=== PATIENT | female | born 1945 | race Caucasian/White ===

== ENCOUNTER 2018-01-06 06:58 | Day surgery (SDC) | payer OTHER, MEDICARE ==
[2018-01-06 07:22] VITALS: BMI 32.3
[2018-01-06] MEDS ORDERED: LIDOCAINE HCL/PF 2% SDV 5ML VIAL ONE (07:50)
[2018-01-06] MEDS ORDERED: PROPOFOL 20 ML ONE ×3 (07:50)
[2018-01-06 08:19] VITALS: TEMP 97.8
[2018-01-06 09:00] VITALS: BP 120/50; PULSE 65
== END 2018-01-06 09:15 | disposition home or self-care (01) ==
LOC: JASU-ENDO 06:58
PROVIDERS: ATTEND Internal Medicine Gastroenterology
PROC: 0DJD8ZZ Inspection of Lower Intestinal Tract, Via Natural or Artificial Opening Endoscopic (ICD-10-PCS; principal; 2018-01-06 08:00)
DX: K59.00 Constipation, unspecified (principal); Z98.0 Intestinal bypass and anastomosis status; K57.30 Diverticulosis of large intestine without perforation or abscess without bleeding

== ENCOUNTER 2018-09-23 21:03 | Emergency (ER) | payer OTHER, MEDICARE ==
[2018-09-23 21:12] VITALS: BP 138/66; PULSE 80; TEMP 98.2; BMI 32.3
--- NOTE | 2018-09-23 23:21 | PDOC ---
Attending Attestation - HPI HPI: 09/23/18 23:42 Patient is a 73 year old female with a significant past medical history of recurrent LLQ pain c/w diverticulitis, Pancreatitis, who presents to the ED with complaints of nausea and vomiting that began earlier this week. Patient reports experiencing nausea with associated multiple episodes of vomiting, prompting her to come into the ED for further evaluation. She reports experiencing 1 bowel movement this morning, stating it was normal. Patient reports experiencing slight abdominal pain that she states feels like bad GERD or like pancreatitis. Denies chest pain, Sob. Denies fevers, chills. Denies dysuria, hematuria. Denies constipation, diarrhea. Denies contact with sick individuals, out of state travelling. Denies any other symptoms. Allergies: Sulfa Social history: No smoking. No alcohol. No illicit drugs. Surgical history: Cholecystectomy PMD: Dr. Meek - Physicial Exam PE: 09/23/18 23:42 Agree with residents Physical Exam. <Mayito Blake - Last Filed: 09/23/18 23:42> - Resident Resident Name: Perez Lucas - ED Attending Attestation I have performed the following: I have examined & evaluated the patient, The case was reviewed & discussed with the resident, I agree w/resident's findings & plan - Medical Decision Making 09/24/18 03:17 73-year-old female with epigastric pain CT scan of the abdomen and pelvis shows no acute abdominal pathology There is an incidental finding of subacute rib fractures which do not appear to be related to patient's complaint today Patient improved after antacids, antiemetics and analgesics Plan for discharge with outpatient gastroenterology follow-up <Nova Ordonez - Last Filed: 09/24/18 03:18>
[2018-09-23] MEDS ORDERED: ACETAMINOPHEN 1000 MG/100 ML VIAL (NON FORMULARY) IVPB ONE (23:24)
[2018-09-23] MEDS ORDERED: FAMOTIDINE 20 MG/50 ML IVPB 20 MG/50 ML MG IVPB ONE ×2 (23:24→23:51)
[2018-09-23] MEDS ORDERED: SODIUM CHLORIDE 1,000 ML IV STA (23:24)
[2018-09-23] MEDS ORDERED: ONDANSETRON 4 MG/2 ML VIAL IVPUSH ONE (23:24)
--- NOTE | 2018-09-23 23:28 | PDOC ---
History of Present Illness - General Chief Complaint: Pain Stated Complaint: VIMITTING/ABD PAIN Time Seen by Provider: 09/23/18 23:17 History Source: Patient Exam Limitations: No Limitations - History of Present Illness Initial Comments: 09/23/18 23:29 Patient is 73F with history of diverticulitis, cholecystectomy, GERD, pancreatitis, HTN, HLD, and DM here today complaining of epigastric abdominal pain and vomiting that onset this morning. Endorses burning sensation in her epigastric region. Denies chest pain and shortness of breath. Denies dysuria, endorses decreased urine output. Last bowel movement this morning, no diarrhea. No fevers, chills. No blood in vomit. Unable to tolerate PO. Past History - Past Medical History Allergies/Adverse Reactions: Allergies Allergy/AdvReac Type Severity Reaction Status Date / Time Sulfa (Sulfonamide Allergy Rash Verified 09/23/18 21:12 Antibiotics) [Sulfa(Sulfonamide Antibiotics)] Home Medications: Ambulatory Orders Aspirin [ASA -] 81 mg PO DAILY 03/12/12 Atorvastatin Ca [Lipitor] 10 mg PO DAILY 03/12/12 Cyanocobalamin [Vitamin B12 -] 25,000 mcg PO WEEKLY 03/12/12 Quinapril HCl [Accupril -] 20 mg PO DAILY 03/12/12 Cholecalciferol (Vitamin D3) [Vitamin D3] 2,000 unit PO DAILY 08/17/14 Pyridoxine HCl [Vitamin B6] 1 tab PO DAILY 11/04/14 Multivit-Min/FA/Lycopen/Lutein [Centrum Silver Tablet] 1 each PO DAILY 10/13/15 Verapamil HCl ER [Calan Sr -] 240 mg PO DAILY tablet.er 10/15/15 Methimazole [Tapazole -] 1 tab PO ASDIR 01/05/18 Sitagliptin Phos/Metformin HCl [Janumet Xr 50-1,000 mg Tablet] 1 each PO BID 04/16 Anemia: No Asthma: No Cancer: No Cardiac Disorders: No CVA: No COPD: No CHF: No Dementia: No Diabetes: Yes (NIDDM) GI Disorders: Yes (DIVERTICULITIS/IBS) Disorders: No HTN: Yes Hypercholesterolemia: Yes Liver Disease: No Seizures: No Thyroid Disease: Yes - Surgical History Abdominal Surgery: No Appendectomy: No Cardiac Surgery: No Cholecystectomy: Yes Lung Surgery: No Neurologic Surgery: No Orthopedic Surgery: Yes (RIGHT LEG FRACTURE IN 2 PLACES) - Suicide/Smoking/Psychosocial Hx Smoking History: Never smoked Have you smoked in the past 12 months: No Hx Alcohol Use: No Drug/Substance Use Hx: No Substance Use Type: None Hx Substance Use Treatment: No Review of Systems - Review of Systems Able to Perform ROS?: Yes Comments:: 09/23/18 23:34 GENERAL/CONSTITUTIONAL: No fever or chills. No weakness. HEAD, EYES, EARS, NOSE AND THROAT: No change in vision. No sore throat. CARDIOVASCULAR: No chest pain or shortness of breath RESPIRATORY: No cough, wheezing, or hemoptysis. GASTROINTESTINAL: +nausea, +vomiting, no diarrhea or constipation. GENITOURINARY: No dysuria, frequency, or change in urination. MUSCULOSKELETAL: No joint or muscle swelling or pain. No neck or back pain. SKIN: No rash NEUROLOGIC: No headache, vertigo, loss of consciousness, or change in strength/ sensation. ALLERGIC/IMMUNOLOGIC: No hives or skin allergy. *Physical Exam - Vital Signs Last Vital Signs Temp Pulse Resp BP Pulse Ox 98.2 F 80 18 138/66 97 09/23/18 21:10 09/23/18 21:10 09/23/18 21:10 09/23/18 21:10 09/23/18 21:10 - Physical Exam Comments: 09/23/18 23:34 GENERAL: Awake, alert, and fully oriented, in no acute distress HEAD: No signs of trauma, normocephalic, atraumatic EYES: PERRLA, EOMI, sclera anicteric, conjunctiva clear ENT: Auricles normal inspection, hearing grossly normal, nares patent, oropharynx clear without exudates. Moist mucosa NECK: Normal ROM, supple, no lymphadenopathy, JVD, or masses LUNGS: No distress, speaks full sentences, clear to auscultation bilaterally HEART: Regular rate and rhythm, normal S1 and S2, no murmurs, rubs or gallops, peripheral pulses normal and equal bilaterally. ABDOMEN: Soft, +epigastric abdominal pain, increased bowel sounds. No guarding , no rebound. No masses EXTREMITIES: Normal inspection, Normal range of motion, no edema. No clubbing or cyanosis. NEUROLOGICAL: Cranial nerves II through XII grossly intact. Normal speech, no focal sensorimotor deficits SKIN: Warm, Dry, normal turgor, no rashes or lesions noted. ED Treatment Course - LABORATORY CBC & Chemistry Diagram: 09/24/18 00:09 09/24/18 00:09 - RADIOLOGY Radiology Studies Ordered: Category Date Time Status ABDOMEN & PELVIS CT WITH CONTR [CT] Stat CT Scan 09/23/18 23:26 Ordered Medical Decision Making - Medical Decision Making 09/23/18 23:35 Patient is 73F with history of diverticulitis, GERD, pancreatitis, cholecystitis , HTN, HLD, DM here today with abdominal pain and vomiting. Vitals normal and stable. DDx includes, but is not limited to: pancreatitis, sbo, gastritis. Will evaluate with labs, ct a/p. Given tylenol, fluids, zofran pepcid. 09/24/18 04:48 CBC normal. CMP reassuring. Lipase negative. Trop negative. CT a/p pelvis shows no acute abnormalities EKG shows NSR with rate of 80. No st elevations/depressions. Normal axis. Normal intervals. No significant t wave abnormalities. Patient reassessed, nontender abdomen. UA cancelled, no urinary symptoms, other symptoms resolved. Patient has GI in [facility], instructed to follow up. *DC/Admit/Observation/Transfer Diagnosis at time of Disposition: Abdominal pain - Discharge Dispostion Disposition: HOME Condition at time of disposition: Good Decision to Admit order: No - Referrals Referrals: Jeromy Meek MD [Primary Care Provider] - - Patient Instructions Printed Discharge Instructions: DI for Abdominal Pain-Adult Additional Instructions: Please follow up with your GI doctor this week. Please return if you have any new, worsening or concerning symptoms, especially increasing pain, vomiting and shortness of breath. - Post Discharge Activity
[2018-09-23] MEDS ORDERED: ACETAMINOPHEN INJECTION 100 ML IVPB ONE (23:50)
[2018-09-23] MEDS ORDERED: ONDANSETRON 4 MG/2 ML VIAL ONE (23:50)
[2018-09-24 00:34] LABS: BASO % 0.2 % (0-2.0); EOS % 0.8 % (0-4.5); HEMATOCRIT 39.3 % (32.4-45.2); HEMOGLOBIN 13.4 GM/dL (10.7-15.3); LYMPH % 4.8 % (8-40); MCH 29.7 pg (25.7-33.7); MCHC 34.1 g/dl (32.0-36.0); MEAN CELL VOLUME 87.2 fl (80-96); MEAN PLT VOLUME 9.4 fl (7.5-11.1); MONO % 5.3 % (3.8-10.2); NEUT % 88.9 % (42.8-82.8); PLATELET COUNT 181 K/MM3 (134-434); RBC 4.51 M/mm3 (3.60-5.2); RDW 14.3 % (11.6-15.6); WHITE BLOOD COUNT 8.2 K/mm3 (4.0-10.0)
[2018-09-24 00:44] LABS: INR 1.12 (0.83-1.09); PROTHROMBIN TIME (PATIENT) 13.2 SEC (9.7-13.0)
[2018-09-24 01:01] LABS: ALBUMIN 3.4 g/dl (3.4-5.0); ALK PHOS 63 U/L (45-117); ANION GAP 9 MMOL/L (8-16); BILIRUBIN,TOTAL 0.7 mg/dL (0.2-1); BLOOD UREA NITROGEN 21 mg/dL (7-18); CALCIUM 8.7 mg/dL (8.5-10.1); CHLORIDE 100 mmol/L (98-107); CO2 23 mmol/L (21-32); CREATININE 0.7 mg/dL (0.55-1.3); GLUCOSE,RANDOM 263 mg/dL (74-106); LIPASE 113 U/L (73-393); MAGNESIUM 1.6 mg/dL (1.8-2.4); POTASSIUM 3.9 mmol/L (3.5-5.1); SGOT/AST 10 U/L (15-37); SGPT/ALT 23 U/L (13-61); SODIUM 132 mmol/L (136-145); TOT PROT 6.6 g/dl (6.4-8.2)
[2018-09-24] MEDS ORDERED: METOCLOPRAMIDE HCL INJECTION 10 MG/2 ML VIAL IVPUSH ONE (01:02)
--- NOTE | 2018-09-24 11:50 | EKG ---
Test Reason : Blood Pressure : / mmHG Vent. Rate : 080 BPM Atrial Rate : 080 BPM P-R Int : 154 ms QRS Dur : 086 ms QT Int : 380 ms P-R-T Axes : 042 -08 060 degrees QTc Int : 438 ms NORMAL SINUS RHYTHM NORMAL ECG WHEN COMPARED WITH ECG OF 13-OCT-2015 17:05, NO SIGNIFICANT CHANGE WAS FOUND Confirmed by ANDRE PALMER MD ([id number]) on 09/24/2018 11:50:03 AM Referred By: Confirmed By:ANDRE PALMER MD
== END 2018-09-24 05:22 | disposition home or self-care (01) ==
LOC: JER 21:03
PROC: 3E033GC Introduction of Other Therapeutic Substance into Peripheral Vein, Percutaneous Approach (ICD-10-PCS; principal; 2018-09-23)
PROC: 3E033GC Introduction of Other Therapeutic Substance into Peripheral Vein, Percutaneous Approach (ICD-10-PCS; 2018-09-23)
PROC: 3E033NZ Introduction of Analgesics, Hypnotics, Sedatives into Peripheral Vein, Percutaneous Approach (ICD-10-PCS; 2018-09-23)
DX: R10.84 Generalized abdominal pain (principal); I10 Essential (primary) hypertension; E78.5 Hyperlipidemia, unspecified; E11.9 Type 2 diabetes mellitus without complications; Z79.84 Long term (current) use of oral hypoglycemic drugs; Z87.19 Personal history of other diseases of the digestive system
CPT/HCPCS: 36415; 74177-TC; 80053; 82550; 83690; 83735; 84484; 85025; 85610; 93005; 93010; 99281-25; J0131; J7030

== ENCOUNTER 2020-08-15 04:56 | Day surgery (SDC) | payer OTHER, MEDICARE ==
[2020-08-11 11:53] VITALS: BMI 31.5
[2020-08-15 08:32] VITALS: TEMP 98.3
[2020-08-15 09:14] VITALS: BP 143/64; PULSE 71
== END 2020-08-15 09:00 | disposition home or self-care (01) ==
LOC: JASU-ENDO 04:56
PROVIDERS: ATTEND Internal Medicine Gastroenterology
PROC: 0DB78ZX Excision of Stomach, Pylorus, Via Natural or Artificial Opening Endoscopic, Diagnostic (ICD-10-PCS; principal; 2020-08-15 08:45)
DX: K44.9 Diaphragmatic hernia without obstruction or gangrene (principal); K21.9 Gastro-esophageal reflux disease without esophagitis
CPT/HCPCS: 88305-TC; 88342-TC

== ENCOUNTER 2020-11-18 12:31 | Emergency (ER) | payer OTHER, MEDICARE ==
[2020-11-18 12:39] VITALS: TEMP 98.5; BMI 28.1
[2020-11-18] MEDS ORDERED: ACETAMINOPHEN 325 MG TABLET (FP) ONE (14:03)
[2020-11-18 15:27] VITALS: BP 208/78; PULSE 78
== END 2020-11-18 15:34 | disposition home or self-care (01) ==
LOC: JER 12:31
DX: M79.604 Pain in right leg (principal)
CPT/HCPCS: 73560-TC-RT-FY; 73590-TC-RT-FY; 93971-TC; 99284-25

== ENCOUNTER 2022-07-07 13:26 | Observation (INO) | payer OTHER, MEDICARE ==
[2022-07-07 13:39] VITALS: BMI 28.0
[2022-07-07] MEDS ORDERED: SODIUM CHLORIDE 0.9% 500 ML INFUS.BAG IV ONE ×2 (14:34→16:30)
[2022-07-07] MEDS ORDERED: FAMOTIDINE 20 MG/50 ML IVPB 20 MG/50 ML MG IVPB ONE ×2 (14:50→15:02)
[2022-07-07] MEDS ORDERED: MAG HYDROX/AL HYDROX/SIMETH 30 ML UNIT-DOSE CUP PO ONE (14:50)
[2022-07-07] MEDS ORDERED: MAG HYDROX/AL HYDROX/SIMETH 30 ML UNIT-DOSE CUP ONE (15:02)
[2022-07-07 15:31] LABS: BASO % 0.6 % (0-2.0); EOS % 4.5 % (0-4.5); HEMATOCRIT 36.4 % (32.4-45.2); HEMOGLOBIN 12.2 GM/dL (10.7-15.3); LYMPH % 14.7 % (8-40); MCH 29.4 pg (25.7-33.7); MCHC 33.5 g/dl (32.0-36.0); MEAN CELL VOLUME 87.6 fl (80-96); NEUT % 71.2 % (42.8-82.8); PLATELET COUNT 276 10^3/uL (134-434); RBC 4.15 M/mm3 (3.60-5.2); RDW 13.7 % (11.6-15.6); WHITE BLOOD COUNT 9.7 K/mm3 (4.0-10.0)
[2022-07-07 15:32] LABS: VENOUS BASE EXCESS -5.5 mmol/L (-2-2); VENOUS O2 SATURATION 23.6 % (70-80); VENOUS PCO2 36.9 mmHg (38-52); VENOUS PH 7.342 (7.310-7.410)
[2022-07-07 15:43] LABS: INR 0.97 (0.83-1.09); PROTHROMBIN TIME (PATIENT) 11.2 SEC (9.7-13.0)
[2022-07-07 15:46] LABS: ACTIVATED PTT 26.1 SECONDS (25.2-36.5)
[2022-07-07 15:53] LABS: CHLORIDE 102 mmol/L (98-107); SODIUM 131 mmol/L (136-145)
[2022-07-07 15:55] LABS: CALCIUM 9.6 mg/dL (8.5-10.1)
[2022-07-07 15:56] LABS: ALBUMIN 3.9 g/dl (3.4-5.0); BLOOD UREA NITROGEN 52.1 mg/dL (7-18); CO2 19 mmol/L (21-32); GLUCOSE,RANDOM 287 mg/dL (74-106)
[2022-07-07 15:59] LABS: CREATININE 1.9 mg/dL (0.55-1.3); SGOT/AST 11 U/L (15-37); SGPT/ALT 24 U/L (13-61)
[2022-07-07 16:01] LABS: BILIRUBIN,TOTAL 0.5 mg/dL (0.2-1); TOT PROT 6.8 g/dl (6.4-8.2)
[2022-07-07 16:02] LABS: ALK PHOS 87 U/L (45-117)
[2022-07-07 16:04] LABS: ANION GAP 10 MMOL/L (8-16)
[2022-07-07] MEDS ORDERED: CALCIUM GLUCONATE 10% - 1,000 MG/10 ML VIAL IVPUSH ONE (16:08)
[2022-07-07] MEDS ORDERED: INSULIN REGULAR HUMAN 100 UNITS/ML *VIAL IVPUSH ONE (16:08)
[2022-07-07] MEDS ORDERED: ALBUTEROL SO4 0.083% IH SOL 2.5 MG/3 ML VIAL.NEB. NEB ONE ×2 (16:09→16:19)
[2022-07-07] MEDS ORDERED: DEXTROSE 50%-WATER - 25 GM/50 ML VIAL IVPUSH ONE (16:09)
[2022-07-07] MEDS ORDERED: DEXTROSE 50%-WATER 25 GM/50 ML DISP.SYRIN ONE (16:19)
[2022-07-07] MEDS ORDERED: CALCIUM GLUCONATE 10% - 1,000 MG/10 ML VIAL ONE (16:20)
[2022-07-07] MEDS ORDERED: SODIUM BICARBONATE 8.4% 50 MEQ/50 ML VIAL IV ONE (16:32)
[2022-07-07] MEDS ORDERED: SODIUM BICARBONATE 8.4% - 50 ML ONE (16:41)
[2022-07-07] MEDS ORDERED: SODIUM ZIRCONIUM CYCLOSILICATE (LOKELMA) 5 GM PACKET PO SCH (16:45)
[2022-07-07 16:57] LABS: EPI CELLS 6 /uL (0-25.1); HYALINE CASTS 2 /uL (0-3.1); PH,URINE 5.5 (5.0-8.0); URINE APPEARANCE CLOUDY; URINE BACTERIA 73 /uL (0-1359); URINE BILIRUBIN NEGATIVE (NEGATIVE); URINE COLOR YELLOW; URINE GLUCOSE (UA) TRACE (NEGATIVE); URINE KETONE NEGATIVE (NEGATIVE); URINE LEUK ESTERASE 3+ (NEGATIVE); URINE NITRITE NEGATIVE (NEGATIVE); URINE PROTEIN TRACE (NEGATIVE); URINE RBC 11 /uL (0-23.9); URINE UROBILINOGEN 0.2 mg/dL (0.2-1.0); URINE WBC 832 /uL (0-25.8)
[2022-07-07] MEDS ORDERED: SODIUM BICARBONATE 8.4% 50 MEQ/50 ML VIAL IVPUSH ONE (17:52)
[2022-07-07] MEDS ORDERED: SODIUM ZIRCONIUM CYCLOSILICATE (LOKELMA) 5 GM PACKET ONE (17:54)
[2022-07-07 19:56] LABS: BLOOD UREA NITROGEN 47.3 mg/dL (7-18); CALCIUM 8.7 mg/dL (8.5-10.1); MAGNESIUM 1.6 mg/dL (1.8-2.4)
[2022-07-07 19:59] LABS: CREATININE 1.6 mg/dL (0.55-1.3)
[2022-07-07 20:00] LABS: CREATININE 1.5 mg/dL (0.55-1.3); PHOSPHOROUS 2.3 mg/dL (2.5-4.9)
[2022-07-07] MEDS ORDERED: ACETAMINOPHEN 325 MG TABLET (FP) PO PRN (21:36)
[2022-07-07] MEDS ORDERED: SODIUM CHLORIDE 1,000 ML IV SCH (21:45)
[2022-07-07] MEDS ORDERED: MAGNESIUM OXIDE 400 MG TABLET (FP) PO ONE (22:09)
[2022-07-07] MEDS ORDERED: NAPH,MB-DB/K PH,MBDB POWDER PACKET PO ONE (22:09)
[2022-07-07] MEDS ORDERED: HEPARIN NA (PORCINE) 5,000 UNITS/ML 1ML VIAL ONE (22:24)
[2022-07-07] MEDS ORDERED: NAPH,MB-DB/K PH,MBDB POWDER PACKET ONE (22:24)
[2022-07-07] MEDS ORDERED: MAGNESIUM OXIDE 400 MG TABLET (FP) ONE (22:24)
[2022-07-07] MEDS: INSULIN SLIDING SCALE (NOVOLOG) 1 VIAL SQ SCH (22:56)
[2022-07-07] MEDS: HEPARIN NA (PORCINE) 5,000 UNITS/ML 1ML VIAL SQ SCH (22:56)
[2022-07-07 23:16] VITALS: TEMP 98.1
[2022-07-08] MEDS ORDERED: HEPARIN NA (PORCINE) 5,000 UNITS/ML 1ML VIAL ONE (05:57)
[2022-07-08] MEDS: HEPARIN NA (PORCINE) 5,000 UNITS/ML 1ML VIAL SQ SCH (06:00)
[2022-07-08] MEDS: INSULIN SLIDING SCALE (NOVOLOG) 1 VIAL SQ SCH ×2 (08:13→12:26)
[2022-07-08 08:52] LABS: BASO % 0.3 % (0-2.0); EOS % 6.9 % (0-4.5); HEMATOCRIT 34.4 % (32.4-45.2); HEMOGLOBIN 11.8 GM/dL (10.7-15.3); LYMPH % 16.7 % (8-40); MCH 30.1 pg (25.7-33.7); MCHC 34.4 g/dl (32.0-36.0); MEAN CELL VOLUME 87.5 fl (80-96); MEAN PLT VOLUME 8.5 fl (7.5-11.1); MONO % 7.5 % (3.8-10.2); NEUT % 68.6 % (42.8-82.8); PLATELET COUNT 242 10^3/uL (134-434); RBC 3.93 M/mm3 (3.60-5.2); RDW 13.8 % (11.6-15.6); WHITE BLOOD COUNT 5.6 K/mm3 (4.0-10.0)
[2022-07-08 08:59] LABS: INR 1.03 (0.83-1.09); PROTHROMBIN TIME (PATIENT) 11.8 SEC (9.7-13.0)
[2022-07-08 09:14] LABS: CALCIUM 9.1 mg/dL (8.5-10.1)
[2022-07-08 09:15] LABS: ALBUMIN 3.6 g/dl (3.4-5.0); BLOOD UREA NITROGEN 29.6 mg/dL (7-18); MAGNESIUM 1.7 mg/dL (1.8-2.4)
[2022-07-08 09:18] LABS: CREATININE 1.1 mg/dL (0.55-1.3); PHOSPHOROUS 2.7 mg/dL (2.5-4.9)
[2022-07-08 09:19] LABS: BILIRUBIN,TOTAL 0.7 mg/dL (0.2-1)
[2022-07-08 09:20] LABS: TOT PROT 6.5 g/dl (6.4-8.2)
[2022-07-08] MEDS ORDERED: ENOXAPARIN NA (PORCINE) 40 MG/0.4 ML DISP.SYRIN SQ SCH (10:00)
[2022-07-08] MEDS ORDERED: METHIMAZOLE 5 MG TABLET PO SCH (10:00)
[2022-07-08] MEDS ORDERED: FAMOTIDINE 10 MG TABLET PO SCH (10:00)
[2022-07-08] MEDS ORDERED: VERAPAMIL HCL 120 MG E.R. TABLET PO SCH (10:00)
[2022-07-08] MEDS ORDERED: FAMOTIDINE 10 MG TABLET ONE (10:48)
[2022-07-08] MEDS ORDERED: MAGNESIUM SULF 50% (8.12 MEQ/2 ML-1 GM VIAL) IVPB ONE (10:55)
[2022-07-08] MEDS ORDERED: MAGNESIUM SULF 50% (8.12 MEQ/2 ML-1 GM VIAL) ONE (11:38)
[2022-07-08] MEDS ORDERED: VERAPAMIL HCL 120 MG E.R. TABLET PO ONE (12:27)
[2022-07-08 13:12] VITALS: BP 141/53; PULSE 76; RESP 18
[2022-07-08] MEDS ORDERED: SODIUM ZIRCONIUM CYCLOSILICATE (LOKELMA) 5 GM PACKET PO ONE ×3 (16:32→23:15)
[2022-07-09] MEDS ORDERED: VERAPAMIL HCL 120 MG E.R. TABLET PO SCH (10:00)
== END 2022-07-08 14:35 | disposition home or self-care (01) ==
LOC: JER 13:26 → JERBED 17:54 → INTOOBSV 17:54
PROVIDERS: ADMIT Internal Medicine; ATTEND Internal Medicine
PROC: 3E0F7GC Introduction of Other Therapeutic Substance into Respiratory Tract, Via Natural or Artificial Opening (ICD-10-PCS; principal; 2022-07-07)
PROC: 3E013VG Introduction of Insulin into Subcutaneous Tissue, Percutaneous Approach (ICD-10-PCS; 2022-07-07)
PROC: 3E0337Z Introduction of Electrolytic and Water Balance Substance into Peripheral Vein, Percutaneous Approach (ICD-10-PCS; 2022-07-07)
PROC: 3E033GC Introduction of Other Therapeutic Substance into Peripheral Vein, Percutaneous Approach (ICD-10-PCS; 2022-07-07)
DX: E11.9 Type 2 diabetes mellitus without complications (principal); I10 Essential (primary) hypertension; I49.8 Other specified cardiac arrhythmias; E05.90 Thyrotoxicosis, unspecified without thyrotoxic crisis or storm; M62.81 Muscle weakness (generalized); K57.92 Diverticulitis of intestine, part unspecified, without perforation or abscess without bleeding; N17.9 Acute kidney failure, unspecified; R10.13 Epigastric pain; Z29.8 Encounter for other specified prophylactic measures; E87.5 Hyperkalemia; R94.31 Abnormal electrocardiogram [ECG] [EKG]; R55 Syncope and collapse; Z88.2 Allergy status to sulfonamides
CPT/HCPCS: 0241U-QW; 36415; 70450-TC; 71045-TC-FY; 76775-TC; 76856-TC; 80048; 80053; 81003; 82010; 82550; 82565; 82803; 82962; 83036; 83735; 84100; 84133; 84300; 84484; 85025; 85610; 85730; 87086; 93005; 93010; 94640; 96361; 96365; 96375; 99285-25; G0378; J1644

== ENCOUNTER 2024-01-26 19:07 | Emergency (ER) | payer OTHER, MEDICARE ==
[2024-01-26 19:34] VITALS: PULSE 62; TEMP 97.7; BMI 28.3
[2024-01-26 20:11] LABS: HEMATOCRIT 36.6 % (32.4-45.2); MCH 29.4 pg (25.7-33.7); MCHC 32.8 g/dl (32.0-36.0); MEAN CELL VOLUME 89.7 fl (80-96); MEAN PLT VOLUME 9.1 fl (7.5-11.1); PLATELET COUNT 274.6 10^3/uL (134-434); RBC 4.08 10^6/uL (3.60-5.2); RDW 14.4 % (11.6-15.6); WHITE BLOOD COUNT 7.7 10^3/uL (4.0-10.8)
[2024-01-26] MEDS ORDERED: morphine SULFATE 4 MG/ML VIAL ONE ×2 (20:16→21:53)
[2024-01-26] MEDS: morphine CARPU-JECT 4 MG/1 ML DISP.SYRIN IVPUSH ONE ×2 (20:20→22:01)
[2024-01-26] MEDS: SODIUM CHLORIDE 0.9% 500 ML INFUS.BAG IV ONE (20:20)
[2024-01-26 20:37] LABS: ALBUMIN 4.3 g/dl (3.4-5.0); BILIRUBIN,TOTAL 0.8 mg/dl (0.2-1); CALCIUM 10.2 mg/dl (8.5-10.1); CREATININE 1.3 mg/dl (0.6-1.3); MAGNESIUM 1.6 mg/dL (1.8-2.4); POTASSIUM 4.1 mmol/L (3.5-5.1); TOT PROT 6.8 g/dl (6.4-8.2)
[2024-01-26 23:07] VITALS: BP 155/52; RESP 16
== END 2024-01-26 23:24 | disposition home or self-care (01) ==
LOC: FER 19:07
PROC: 3E033NZ Introduction of Analgesics, Hypnotics, Sedatives into Peripheral Vein, Percutaneous Approach (ICD-10-PCS; principal; 2024-01-26)
PROC: 3E033NZ Introduction of Analgesics, Hypnotics, Sedatives into Peripheral Vein, Percutaneous Approach (ICD-10-PCS; 2024-01-26)
DX: R10.84 Generalized abdominal pain (principal); R19.7 Diarrhea, unspecified; R11.10 Vomiting, unspecified
CPT/HCPCS: 36415; 71045-TC-FY; 74176-TC; 80053; 81003; 81015; 82550; 83605; 83735; 84484; 85027; 87086; 93005; 99285-25